=== PATIENT | male | born 1975 | race Caucasian/White ===

== ENCOUNTER 2022-10-10 07:48 | Emergency (ER) | payer OTHER, SELFPAY ==
--- NOTE | ~2022-10-10 | XR_ITS ---
EXAMINATION: XR shoulder LT min 2V DATE: 10/10/2022 22:55 INDICATION: Left shoulder injury and pain. TECHNIQUE: 4 views of left shoulder were obtained. COMPARISON: None. FINDINGS: Bone alignment is normal. No fracture. There is mild osteoarthritis of glenohumeral joint a nd moderate osteoarthritis of acromioclavicular joint. IMPRESSION: 1. Polyarticular osteoarthritis. Reviewed, dictated and finalized at location A.
--- NOTE | ~2022-10-10 | XR_ITS ---
EXAMINATION: XR humerus LT INDICATION: Left proximal humerus pain TECHNIQUE: Two views of the left shoulder are submitted. COMPARISON: None FINDINGS: Normal alignment. No fracture. There is mild osteoarthritis of the glenohumeral and acromio clavicular joints. Soft tissues are unremarkable. IMPRESSION: 1. No acute osseous abnormality. Reviewed, dictated and finalized at location A.
== END 2022-10-10 12:35 | disposition home or self-care (01) ==
LOC: ANHED 10-16 12:47
PROVIDERS: Emergency Provider Emergency Medicine; PCP Emergency Medicine
DX: S49.92XA Unspecified injury of left shoulder and upper arm, initial encounter (principal); S00.81XA Abrasion of other part of head, initial encounter; W01.0XXA Fall on same level from slipping, tripping and stumbling without subsequent striking against object, initial encounter
CPT/HCPCS: 73030; 73060; 99283

== ENCOUNTER 2022-10-19 09:37 | Outpatient (CLI) | payer OTHER, SELFPAY ==
--- NOTE | ~2022-10-19 | MR_ITS ---
MRI of the left shoulder Technique: Axial proton-density fat-sat images, coronal proton density fat-sat and T2 fat-sat images, and sagittal T1-weighted and T2 fat-sat images were acquired. Clinical History: Pain Findings: There is advanced AC joint degenerative change, with subchondral spur present. Coracoclavic ular, coracoacromial, and coracohumeral ligaments are probably intact. There is full-thickness tear involving essentially the entire supraspinatus tendon, with fluid-filled gap measuring approximately 2.0 x 3.3 cm in extent. There is moderate to advanced infraspinatus tend inosis, without definite partial or full-thickness tear of this tendon. There is high-grade partial v ersus complete tearing of the distal subscapularis tendon, which is markedly thinned. There is perchi ng of the biceps tendon along the medial aspect of the bicipital groove without complete migel disloc ation. No rupture of the biceps tendon. No definite labral tear identified. Inferior glenohumeral ligament is intact. There is moderate glenohumeral joint effusion, with fluid p assing through the rotator cuff defect into the subacromial/subdeltoid bursa. No degenerative change of the glenohumeral joint. No muscle atrophy or edema evident. Impression: Complete, full-thickness tear of the entire supraspinatus tendon, as detailed above. Extensive high-grade partial versus complete tearing of the distal subscapularis tendon. Perching of the biceps tendon along the medial aspect of the bicipital groove without migel, complete dislocation. Advanced AC joint degenerative change. Reviewed, dictated and finalized at location . Impression: Complete, full-thickness tear of the entire supraspinatus tendon, as detailed a shahana. Extensive high-grade partial versus complete tearing of the distal subscapulari s tendon. Perching of the biceps tendon along the medial aspect of the bicipital groove w ithout migel, complete dislocation. Advanced AC joint degenerative change.
--- NOTE | ~2022-10-19 | XR_ITS ---
AP view of the skull CLINICAL HISTORY: MR clearance, possible metal in eye Findings: Probable dental filling noted on the left side of the jaw. No other metallic foreign body s een. Osseous structures are intact. Paranasal sinuses are clear. Soft tissues are otherwise unremarka ble. IMPRESSION: No orbital metal evident. Reviewed, dictated and finalized at location . IMPRESSION: No orbital metal evident.
== END 2022-10-19 09:38 ==
PROVIDERS: PCP Orthopaedic Surgery; Referring Provider Family Medicine; Visit Provider Radiology Diagnostic Radiology
DX: S49.92XA Unspecified injury of left shoulder and upper arm, initial encounter (principal); X58.XXXA Exposure to other specified factors, initial encounter
CPT/HCPCS: 70250; 73221

== ENCOUNTER 2024-12-22 08:49 | Emergency (ER) | payer OTHER, SELFPAY ==
--- OUTSIDE RECORDS SUMMARY | 2011-01-01 19:00 | XMS_ITS | Continuity of Care Document ---
Author Organization [facility] Address [address] [place] [address] Phone Care Team Providers Care Hearing Aid Technician Name Role Phone Javon Dean MD Unavailable Unavailable Allergies, Adverse Reactions, Alerts Substance Reaction Status Criticality azithromycin Other Active No Information penicillin V Other Active No Information Medications Medication Instructions Dosage Effective Dates (start - stop) Status Comments FLUOXETINE HCL 20 MG CAPSULE 1 DAILY - Active MICHELE-D 12 HOUR TABLET 1 BID - Active NAPROSYN 500 MG TABLET 1 BID - Active FLUOXETINE HCL 20 MG CAPSULE 1 DAILY - No Longer Active FLUOXETINE HCL 20MG CAPS 1 DAILY - No Longer Active CELEXA 20MG TABS 2 QD-daily - No Longer Active patient does not want substitute CITALOPRAM HBR 20 MG TABLET 2 QD-daily - No Longer Active CITALOPRAM HBR 20 MG TABLET 2 QD-daily - No Longer Active CITALOPRAM HBR 20 MG TABLET 1 QD-daily - No Longer Active CITALOPRAM HBR 20 MG TABLET 1 QD-daily - No Longer Active CITALOPRAM HBR 20 MG TABLET 1 QD-daily - No Longer Active CITALOPRAM HBR 20 MG TABLET 1 QD-daily - No Longer Active CITALOPRAM HBR 20MG TABS 1 QD-daily - No Longer Active NAPROSYN 500MG TABS 1 BID - No Longer Active MICHELE-D 12 HOUR TABLET 1 BID - No Longer Active MICHELE-D 12 HOUR TABLET 1 BID - No Longer Active MICHELE-D 12 HOUR TABLET 1 BID - No Longer Active LEXAPRO 10MG TABS 1 QD - No Longer Active MICHELE-D 120-60MG TABS 1 BID - No Longer Active Advance Directives Directive Yes / No Effective Date File Name No Information Encounters Encounter Description Practice Location Reason(s) For Visit Diagnoses Date Provider Providers Copied on Encounter [facility], [address], [place], [place], [address], tel:[phone] [facility] No Information 1 Trame Javon. [address] , [address], [place], [place], [address] . tel:[phone] [facility], [address], [place], [place], [address], tel:[phone] [facility] ABNORMAL WEIGHT GAINANXIETY STATE NOSLONG-TERM USE MEDS NECMIXED HYPERLIPIDEMIA 7-200 8 Trame [place]. [address] , [address], [place], [place], [address] . tel:[phone] [facility], [address], [place], [place], [address], tel:[phone] [facility] DEPRESSIVE DISORDER NECANXIETY STATE NEC 3-200 7 Trame Javon. [address] , [address], [place], [place], [address] . tel:[phone] [facility], [address], [place], [place], [address], tel:[phone] [facility] JOINT PAIN-L/LEGSCREEN LIPOID DISORDERSGENERAL OSTEOARTHROSIS 1-200 7 Trame Javon. [address], [address], [place], [place], [address] . tel:[phone] [facility], [address], [place], [place], [address], [place] tel:[phone] [facility] MALAISE AND FATIGUE NEC 3-200 7 Trame Javon. [address] , [address], [place], [place], [address] . tel:[phone] [facility], [address], [place], [place], [address], [place] tel:[phone] [facility] No Information 2-200 5 Trame Javon. [address], [address], [place], [place], [address] . tel:[phone] [facility], [address], [place], [place], [address], tel:[phone] [facility] No Information 4-200 5 Trame Javon. [address] , [address], [place], [place], [address] . tel:[phone] [facility], [address], [place], [place], [address], [place] tel:[phone] [facility] ALLERGIC RHINITIS NOS 2-200 5 Trame [place]. [address] , [address], [place], [place], [address] . tel:[phone] [facility], [address], [place], [place], [address], [place] tel:[phone] [facility] SCREEN-THYROID DISORDER 3-200 2 Trame [place]. [address] , [address], [place], [place], [address] . tel:[phone] Family History Family Member Type Diagnosis Age At Onset No Information Payers Payer name Insurance type Covered republican ID Authoriza tijoseph(s) No Information Social History Type Description Quantity Date Captured Comments Sex Male Smoking Status No Information Chief Complaint And Reason For Visit No Information Reason For Referral Reason For Referral No Information History Of Present Illness Encounter Date Complaint History Of Prese nt Illness No Information Functional Status Date Functional Assessmen t No Information Medications Administered Medication Instructions Dosage Effective Dates (start - stop) Status Comments FLUOXETINE HCL 20 MG CAPSULE 1 DAILY - No Longer Active CITALOPRAM HBR 20 MG TABLET 1 QD-daily - No Longer Active CITALOPRAM HBR 20MG TABS 1 QD-daily - No Longer Active NAPROSYN 500MG TABS 1 BID - No Longer Active Instructions Date Instruction Additional Infor mation No Information Assessments Type Assessment Date No Information Patient Care Teams Name Effective Dates (start - stop) Status Members No Information
--- OUTSIDE RECORDS SUMMARY | 2011-01-01 19:00 | XMS_ITS | Continuity of Care Document ---
Author Organization [facility] Address [address] [place] [address] Phone Care Team Providers Care Chief Engineer'S Helper Name Role Phone Javon Dean MD Unavailable [...] Diagnoses Date Provider Providers Copied on Encounter [facility], [address], [place], [place], [address], tel:[phone] [facility] No Information 1 Trame Javon. [address] , [address], [place], [place], [address] . tel:[phone] [facility], [address], [place], [place], [address], tel:[phone] [facility] ABNORMAL WEIGHT GAINANXIETY STATE NOSLONG-TERM USE MEDS NECMIXED HYPERLIPIDEMIA 7-200 8 Trame [place]. [address] , [address], [place], [place], [address] . tel:[phone] [facility], [address], [place], [place], [address], tel:[phone] [facility] DEPRESSIVE DISORDER NECANXIETY STATE NEC 3-200 7 Trame Javon. [address] , [address], [place], [place], [address] . tel:[phone] [facility], [address], [place], [place], [address], tel:[phone] [facility] JOINT PAIN-L/LEGSCREEN LIPOID DISORDERSGENERAL OSTEOARTHROSIS 1-200 7 Trame Javon. [address], [place], [place], [address] . tel:[phone] [facility], [address], [place], [place], [address], [place] tel:[phone] [facility] MALAISE AND FATIGUE NEC 3-200 7 Trame Javon. [address] , [address], [place], [place], [address] . tel:[phone] [facility], [address], [place], [place], [address], [place] tel:[phone] [facility] No Information 2-200 5 Trame Javon. [address], [address], [place], [place], [address] . tel:[phone] [facility], [address], [place], [place], [address], tel:[phone] [facility] No Information 4-200 5 Trame Javon. [address] , [address], [place], [place], [address] . tel:[phone] [facility], [address], [place], [place], [address], [place] tel:[phone] [facility] ALLERGIC RHINITIS NOS 2-200 5 Trame [place]. [address] , [address], [place], [place], [address] . tel:[phone] [facility], [address], [place], [place], [address], [place] tel:[phone] [facility] SCREEN-THYROID DISORDER 3-200 2 Trame [place]. [address] , [address], [place], [place], [address] . tel:[phone] Family History Family Member Type Diagnosis Age At Onset No Information Payers Payer name Insurance type Covered constitution party ID Authoriza tijoseph(s) No Information Social History [...]
--- NOTE | ~2024-12-22 | XR_ITS ---
XR shoulder RT min 2V 12/22/2024 09:19 Indication: Right shoulder pain Procedure: 4 views right shoulder Comparison: No prior studies for comparison. Findings: There is mild osteoarthritis of the acromioclavicular joint. No fracture, subluxation or dislocation. No significant soft tissue abnormality. No foreign bodies. Impression: 1: Mild osteoarthritis of the acromioclavicular joint. Reviewed, dictated and finalized at location O. Impression: 1: Mild osteoarthritis of the acromioclavicular joint.
[2024-12-22 08:59] VITALS: BP 159/85; PULSE 73; RESP 16; TEMP 36.7; O2SAT 98
--- NOTE | 2024-12-22 09:49 | ED.UPPEXIN ---
HPI - Extremity Injury (Upper) General Chief Complaint: Extremity Injury, Upper Stated Complaint: right shoulder injury Time Seen by Provider: 12/22/24 09:07 Source: patient Mode of arrival: ambulatory Limitations: no limitations History of Present Illness HPI narrative: Patient is a 49-year-old male who presents the ED with report of right shoulder pain. Patient reports he slipped and fell yesterday at work and fell forward with his arm outstretched. Was carrying a box in his right arm and fell awkwardly on to his arm. Complains of pain to his right shoulder with limited range of motion. Denies any other significant areas of pain. Did scrape his face on the ground, but denies true head injury, LOC, dizziness. Has been taking naproxen for the pain with minimal relief. Related Data Home Medications ?Medication ?Instructions ?Recorded ?Confirmed ?Last Taken ?Type acetaminophen 500 mg tablet 500 mg PO Q6H PRN 10/12/22 10/12/22 Unknown History (Tylenol Extra Strength) allopurinol 100 mg tablet 100 mg PO DAILY 10/12/22 10/12/22 Unknown History atenolol 50 mg tablet 50 mg PO DAILY 10/12/22 10/12/22 Unknown History ibuprofen 200 mg tablet (Advil) 200 mg PO Q6H PRN 10/12/22 10/12/22 Unknown History Allergies Allergy/AdvReac Type Severity Reaction Status Date / Time Bleach (Sodium Hypochlorite) Allergy Unknown Unknown Verified 12/22/24 08:57 fenofibrate Allergy Unknown Unknown Verified 12/22/24 08:57 lisinopril Allergy Unknown Unknown Verified 12/22/24 08:57 losartan Allergy Unknown Unknown Verified 12/22/24 08:57 Penicillins Allergy Unknown Unknown Verified 12/22/24 08:57 Review of Systems Review of Systems: All systems reviewed & are unremarkable except as noted in HPI. All systems reviewed & are unremarkable except as noted in HPI and below PMFSH Past Medical History Medical History Hypertension Surgical History Surgical History No pertinent past surgical history Family History Family History Mother Family history of thyroid disease Other Family history of arthritis Hypertension Social History Social History Smoking status: Current every day smoker Tobacco type: smokeless tobacco Smokeless tobacco user: chewing tobacco Alcohol intake: current Substance use: never Exam Narrative: GENERAL: Well appearing, well-nourished, non-toxic, in no acute distress. HEAD: Normocephalic, atraumatic. RESPIRATORY: Airway patent, respirations nonlabored. CARDIOVASCULAR: Regular rate and rhythm. Radial pulses strong and intact MUSCULOSKELETAL: No gross deformities. Marked limited range of motion of right shoulder flexion/abduction and due to pain. Tenderness to palpation over right anterior shoulder joint. No significant swelling. No gross deformity. Sensation intact throughout extremity. Equal inspector open die strength bilaterally. SKIN: Warm, dry, normal color. NEURO: A&O X3. Speech clear. Cranial nerves II-XII grossly intact. Steady gait. No ataxic movements. PSYCHIATRIC: Appropriate mood and affect. Normal interaction. Course Vital Signs Vital signs: Vital Signs Temperature 98.0 F 12/22/24 08:59 Pulse Rate 73 12/22/24 08:59 Respiratory Rate 16 12/22/24 08:59 Blood Pressure 159/85 H 12/22/24 08:59 Pulse Oximetry 98 12/22/24 08:59 Oxygen Delivery Room Air 12/22/24 08:59 Temperature 98.0 F 12/22/24 08:59 Pulse Rate 73 12/22/24 08:59 Respiratory Rate 16 12/22/24 08:59 Blood Pressure 159/85 H 12/22/24 08:59 Pulse Oximetry 98 12/22/24 08:59 Oxygen Delivery Room Air 12/22/24 08:59 MDM - Extremity Injury (Upper) MDM Narrative Medical decision making narrative: Patient?s injury is consistent with musculoskeletal etiology. No signs of neurologic or vascular compromise on physical examination. Compartments are soft without signs of compartment syndrome. XR right shoulder without evidence of fracture or dislocation. Pain is consistent with strain of right shoulder, possible rotator cuff injury. Patient is felt to be stable for discharge home and further outpatient management and treatment. Given sling for comfort and support. Patient does have previous left rotator cuff injury with repair and has seen an equipment sales specialist in [place]. Advised to follow-up with orthopedics for further evaluation. Discussed rice therapy. Discussed return precautions. Patient in agreement with plan. Discharged in stable condition. Medical Records Attestation: I reviewed the patient's medical records. Imaging Data Attestation: I personally reviewed and interpreted this imaging study as follows: Radiologist's impression: ITS Impressions Shoulder X-Ray 12/22/24 09:20 Impression: 1: Mild osteoarthritis of the acromioclavicular joint. Discharge Plan Discharge Clinical Impression: Strain of right shoulder Qualifiers: Encounter type: initial encounter Qualified Code(s): S46.911A - Strain of unspecified muscle, fascia and tendon at shoulder and upper arm level, right arm, initial encounter Patient Disposition: Home Condition: Stable Instructions: Antibiotic Form, Rotator Cuff Injury (ED), How to Use a Sling (ED), Shoulder Sprain (ED) Additional Instructions: Your x-ray did not show any evidence of fracture. It is possible you may have injured your rotator cuff muscles. Recommend frequent icing to shoulder, Tylenol and Ibuprofen as needed for pain. Post as needed for more severe pain. Utilize sling for comfort and support. Follow-up with your primary care doctor and orthopedics for further evaluation. Call office to make appointment. Return to the ED if you experience worsening or severe pain, recurrent injury, numbness in arms, weakness of arm, or any other symptoms of concern. Patient Language: Latvian Prescriptions: New hydrocodone-acetaminophen 5-325 mg tablet 1 tablet PO Q6H PRN (Reason: pain) Qty: 10 0RF No Action atenolol 50 mg tablet 50 mg PO DAILY allopurinol 100 mg tablet 100 mg PO DAILY acetaminophen [Tylenol Extra Strength] 500 mg tablet 500 mg PO Q6H PRN ibuprofen [Advil] 200 mg tablet 200 mg PO Q6H PRN hydrocodone-acetaminophen 5-325 mg tablet 1 - 2 tablet PO Q4H MDD 6 tabs PRN (Reason: pain) Qty: 30 0RF Follow-up/Referrals: Sergo,MD Nicola [Primary Care Provider, Unknown] Kin Marcelo MD [Physician, Orthopedics] Referral Note: ORTHOPEDICS Time of Disposition: 09:54
[2024-12-22 10:23] VITALS: BP 146/80; PULSE 80; RESP 16; TEMP 36.6; O2SAT 98
== END 2024-12-22 10:25 | disposition home or self-care (01) ==
PROVIDERS: Emergency Provider Physician Assistant; PCP Family Medicine
DX: S46.911A Strain of unspecified muscle, fascia and tendon at shoulder and upper arm level, right arm, initial encounter (principal); F17.220 Nicotine dependence, chewing tobacco, uncomplicated; I10 Essential (primary) hypertension; W01.0XXA Fall on same level from slipping, tripping and stumbling without subsequent striking against object, initial encounter
CPT/HCPCS: 73030; 99283; A4565

== ENCOUNTER 2025-03-05 09:03 | Outpatient (CLI) | payer OTHER, SELFPAY ==
--- NOTE | ~2025-03-05 | MR_ITS ---
EXAM/PROCEDURE: MR shoulder RT wo con HISTORY: shoulder pain COMPARISON: Right shoulder x-rays from December 22 TECHNIQUE: Right shoulder MRI FINDINGS: No fracture subluxation or dislocation. Small to moderate joint effusion, and moderate amount of fluid within the subacromial bursa, with large retracted tear involving the supraspinatus and infraspinatus tendons. The retraction is approximately 5 cm with the tendon tip retracting to the level of the superior labrum. See image 12 series 5. The subscapularis tendon also appears partially torn but not retracted. The teres minor appears intact. The rotator muscles do not appear particularly atrophied. Moderately extensive osteoarthritic degenerative changes about the glenohumeral joint, and subchondral cystic changes developing at the greater tuberosity. Moderately severe arthrosis and spurring about the AC joint. The long head of the biceps tendon is displaced anteriorly from the groove as can be seen on image 14 series 8, however no discrete tear; the superior labral attachment is only partially seen but also appears intact. Spinoglenoid recess and suprascapular notch regions with edematous changes/trace amounts of fluid but otherwise unremarkable. No definite labral tear on this nonarthrographic series. IMPRESSION: 1. Large retracted full-thickness tears involving the supraspinatus and infraspinatus tendons. The muscles do not appear significantly atrophied. 2. Dislocation of the long head biceps tendon anterior to the bicipital groove. Superior labral attachment is only partially visualized but does appear intact. 3. Other findings as above. Reviewed, dictated and finalized at location A. JAVA DEVELOPER IMPRESSION: 1. Large retracted full-thickness tears involving the supraspinatus and infrasp inatus tendons. The muscles do not appear significantly atrophied. 2. Dislocation of the long head biceps tendon anterior to the bicipital groove. Superior labral attachment is only partially visualized but does appear intact . 3. Other findings as above.
== END 2025-03-05 09:04 | disposition home or self-care (01) ==
LOC: MICIMG 09:04
PROVIDERS: PCP Family Medicine; Visit Provider Orthopaedic Surgery
DX: M25.511 Pain in right shoulder (principal)
CPT/HCPCS: 73221